=== PATIENT | male | born 1995 | race Caucasian/White ===

== ENCOUNTER 2016-07-31 08:19 | Emergency (ER) | payer OTHER ==
[~2016-07-31] VITALS: Ht 188 cm; Wt 100.0 kg
[2016-07-31] MEDS ORDERED: MOTRIN800 MG PO (09:30)
[2016-07-31 10:01] VITALS: BP 138/81
== END 2016-07-31 10:02 | disposition home or self-care (01) ==
LOC: EME 08:19
PROC: 2W3RX1Z Immobilization of Left Lower Leg using Splint (ICD-10-PCS; principal; 2016-07-31)
DX: S82.892A Other fracture of left lower leg, initial encounter for closed fracture (principal); V86.59XA Driver of other special all-terrain or other off-road motor vehicle injured in nontraffic accident, initial encounter
CPT/HCPCS: 73610; 99281; 99283